=== PATIENT | male | born 1955 | race African-American/Black ===

== ENCOUNTER 2022-01-30 09:09 | Observation (INO) ==
[2022-01-26 14:47] LABS: Basophils # 0.1 10*3/uL (0.0-0.2); Basophils % 0.6 % (0.0-0.8); Eosinophils # 0.1 10*3/uL (0.0-0.87); Eosinophils % 1.5 % (0.00-10.9); Hemoglobin 14.1 GM/DL (14.0-18.0); Immature Granulocytes % 0.4 %; Immature Granulocytes Absolute 0.03 #; Lymphocytes # 3.4 10*3/uL (1.4-4.0); Lymphocytes % 43.8 % (21.2-54.2); Mean Corpuscular HGB Conc 31.3 GM/DL (32-36); Mean Corpuscular Volume 73.4 FL (87-102); Mean Platelet Volume 10.7 FL (9.6-12.0); Monocytes # 0.6 10*3/uL (0.11-0.8); Monocytes % 7.7 % (1.7-12.7); Platelet Count 287 T/CUMM (130-400); Red Blood Count 6.13 MC/CUMM (3.8-5.5); Red Cell Distribution Width 16.4 % (9.3-17.3); White Blood Count 7.8 T/CUMM (4-12)
[2022-01-26 14:57] LABS: Calcium 8.9 MG/DL (8.5-10.1); Osmolality,Calculated 279.5 MOS/KG (273-304); Potassium 4.3 MMOL/L (3.5-5.1)
[2022-01-30] MEDS ORDERED: LACTATED RINGERS 1,000 ML IV SCH (09:30)
[2022-01-30] MEDS ORDERED: FAMOTIDINE 20 MG TABLET PO ONE (10:04)
[2022-01-30] MEDS ORDERED: GABAPENTIN 400 MG CAPSULE PO ONE (10:04)
[2022-01-30] MEDS ORDERED: DIAZEPAM 5 MG TABLET PO ONE (10:04)
[2022-01-30] MEDS ORDERED: ACETAMINOPHEN 500 MG TABLET PO ONE (10:04)
[2022-01-30] MEDS ORDERED: FAMOTIDINE 20 MG TABLET ONE (10:08)
[2022-01-30] MEDS ORDERED: GABAPENTIN 400 MG CAPSULE ONE (10:08)
[2022-01-30] MEDS ORDERED: DIAZEPAM 5 MG TABLET ONE (10:08)
[2022-01-30] MEDS ORDERED: ACETAMINOPHEN 500 MG TABLET ONE (10:08)
[2022-01-30] MEDS ORDERED: ROCURONIUM 50 MG/5 ML VIAL IV ONE (11:31)
[2022-01-30] MEDS ORDERED: LIDOCAINE 2% 5 ML VIAL ONE (11:31)
[2022-01-30] MEDS ORDERED: MIDAZOLAM 2 MG/2 ML VIAL ONE (11:31)
[2022-01-30] MEDS ORDERED: propofoL 200 MG/20 ML VIAL IV ONE (11:31)
[2022-01-30] MEDS ORDERED: fentaNYL 100 MCG/2 ML VIAL ONE (11:31)
[2022-01-30] MEDS ORDERED: ONDANSETRON 4 MG/2 ML VIAL ONE (11:31)
[2022-01-30] MEDS ORDERED: SEVOFLURANE 1 UNIT/15 MINUTE INH ONE ×9 (11:31→15:21)
[2022-01-30] MEDS ORDERED: DEXAMETHASONE 4 MG/1 ML VIAL ONE ×2 (11:31→11:35)
[2022-01-30] MEDS ORDERED: ROPIVACAINE 0.5% 30 ML VIAL ONE (11:41)
[2022-01-30] MEDS ORDERED: LIDOCAINE 1% 5 ML VIAL ONE (11:41)
[2022-01-30] MEDS ORDERED: TISSUE ADHESIVE 1 EACH APPLICATOR TOP ONE (12:21)
[2022-01-30] MEDS ORDERED: LIDOCAINE 1%/EPI INJ 20 ML VIAL ONE (12:21)
[2022-01-30] MEDS ORDERED: BUPIVACAINE 0.5% 50 ML VIAL ONE (12:21)
[2022-01-30] MEDS ORDERED: ePHEDrine 50 MG/ML VIAL ONE (13:15)
[2022-01-30] MEDS ORDERED: PHENYLEPHRINE 1 MG/10 ML SYRINGE IV ONE (13:24)
[2022-01-30] MEDS ORDERED: KETOROLAC 30 MG/1 ML VIAL ONE (13:25)
[2022-01-30] MEDS ORDERED: BISACODYL 5 MG TABLET PO PRN (15:04)
[2022-01-30] MEDS ORDERED: GLUCAGON 1 MG VIAL IM PRN (15:04)
[2022-01-30] MEDS ORDERED: ALBUTEROL/IPRATROPIUM 3 ML NEB RESP TX PRN (15:04)
[2022-01-30] MEDS ORDERED: HYDROmorphone 1 MG/1 ML SYRINGE IV PRN ×2 (15:04)
[2022-01-30] MEDS ORDERED: ACETAMINOPHEN 325 MG TABLET PO PRN (15:04)
[2022-01-30] MEDS ORDERED: ONDANSETRON 4 MG/2 ML VIAL IV PRN (15:04)
[2022-01-30] MEDS ORDERED: METHOCARBAMOL 500 MG TABLET PO PRN (15:07)
[2022-01-30] MEDS ORDERED: hydrALAZINE 20 MG/1 ML VIAL IV ONE (15:40)
[2022-01-30] MEDS ORDERED: DEXTROSE 10% 250 ML BAG IV PRN (17:04)
[2022-01-30] MEDS ORDERED: PNEUMOCOCCAL VACCINE (13 VALENT) 0.5 ML SYRINGE IM ONE (17:53)
[2022-01-30] MEDS: KETOROLAC 15 MG/1 ML VIAL IV SCH ×2 (17:53→22:30)
[2022-01-30] MEDS: INSULIN LISPRO 100 UNIT/ML SUBCUT SCH ×2 (18:38→22:30)
[2022-01-31] MEDS: KETOROLAC 15 MG/1 ML VIAL IV SCH ×2 (03:40→08:52)
[2022-01-31 05:04] LABS: Basophils % 0.3 % (0.0-0.8); Hematocrit 41.7 VOL% (42.0-52.0); Hemoglobin 13.2 GM/DL (14.0-18.0); Immature Granulocytes % 0.5 %; Immature Granulocytes Absolute 0.06 #; Lymphocytes # 1.8 10*3/uL (1.4-4.0); Lymphocytes % 14.8 % (21.2-54.2); Mean Corpuscular HGB Conc 31.7 GM/DL (32-36); Mean Corpuscular Volume 72.8 FL (87-102); Mean Platelet Volume 9.9 FL (9.6-12.0); Monocytes # 0.7 10*3/uL (0.11-0.8); Monocytes % 6.3 % (1.7-12.7); Neutrophils % 78.1 % (38.7-73.9); Platelet Count 276 T/CUMM (130-400); Red Blood Count 5.73 MC/CUMM (3.8-5.5); Red Cell Distribution Width 15.2 % (9.3-17.3); White Blood Count 11.8 T/CUMM (4-12)
[2022-01-31 05:34] LABS: Calcium 8.6 MG/DL (8.5-10.1); Osmolality,Calculated 280.7 MOS/KG (273-304); Potassium 3.9 MMOL/L (3.5-5.1)
[2022-01-31] MEDS: INSULIN LISPRO 100 UNIT/ML SUBCUT SCH (08:54)
[2022-01-31] MEDS ORDERED: TRIAMTERENE/HCTZ 37.5-25 MG TABLET PO SCH (09:00)
[2022-01-31] MEDS ORDERED: METOPROLOL SUCCINATE XL 100 MG TABLET PO SCH (09:00)
[2022-01-31] MEDS ORDERED: PANTOPRAZOLE 40 MG TABLET PO SCH (09:00)
[2022-01-31 11:57] VITALS: BP 159/78
[2022-01-31] MEDS ORDERED: ATORVASTATIN 20 MG TABLET PO SCH (21:00)
== END 2022-01-31 12:00 | disposition home or self-care (01) ==
LOC: N.OR 09:09 → N.SDSINP 09:09 → N.3E 16:41
PROVIDERS: ADMIT Surgery; ATTEND Surgery